=== PATIENT | male | born 1960 | race Caucasian/White ===

== ENCOUNTER 2018-09-02 15:37 | Emergency (ER) | payer MEDICARE ==
[~2018-09-02] VITALS: Ht 175.3 cm; Wt 84.1 kg
[2018-09-02 15:41] VITALS: TEMP 98.1
[2018-09-02 16:11] LABS: BASO # 0.1 (0.0-0.2); BASO % 0.6 % (0.0-2.0); EOS # 0.1 (0.0-0.7); EOS % 0.7 % (0-4.0); GRAN # 5.5 (1.4-6.5); GRAN % 51.1 % (42.2-75.2); LYMPH # 3.7 (1.2-3.4); LYMPH % 34.3 % (20.0-51.0); MEAN CELL VOLUME 95 fl (80.0-100.0); MEAN CORPUSCULAR HEMOGLOBIN 34 pg (27.0-31.0); MEAN CORPUSCULAR HGB CONC 36 g/dl (33.0-37.0); MEAN PLATELET VOLUME 9.9 fl (7.4-10.4); MONO # 1.4 (0.1-0.6); PLATELET COUNT 184 K/mm3 (130-400); RED BLOOD COUNT 4.75 M/mm3 (4.20-5.60); REDCELL DISTRIBUTION WIDTH-CV 12.8 % (11.5-14.5)
[2018-09-02 16:13] LABS: COLLECTION METHOD CLEAN CATCH
[2018-09-02 16:22] LABS: MUCOUS Present /lpf; PH 6 (5-8); SQUAMOUS EPITHELIAL None Seen /hpf; URINE APPEARANCE Clear; URINE BACTERIA None Seen /hpf; URINE BILIRUBIN Negative (NEGATIVE); URINE BLOOD Negative (NEGATIVE); URINE COLOR Yellow; URINE GLUCOSE 1+ (NEGATIVE); URINE KETONE Negative (NEGATIVE); URINE LEUKOCYTE ESTERASE Negative (NEGATIVE); URINE NITRATE Negative (NEGATIVE); URINE PROTEIN(semi-quant) Negative (NEGATIVE); URINE RBC 0-2 /hpf; URINE UROBILINOGEN >=4.0 mg/dL (NEGATIVE)
[2018-09-02 16:29] LABS: ALANINE AMINOTRANSFERASE 24 U/L (21-72); ALBUMIN 4.8 gm/dL (3.5-5.0); ALKALINE PHOSPHATASE 82 U/L (50-136); ANION GAP 13 mmol/L (7-16); AST,SGOT 51 U/L (15-37); BILIRUBIN,TOTAL 1.1 mg/dL (0.0-1.0); BLOOD UREA NITROGEN 18 mg/dL (9-20); CALCIUM 9.3 mg/dL (8.4-10.2); CARBON DIOXIDE 26 mmol/L (22-30); CHLORIDE 97 mmol/L (98-107); CREATININE, serum 1.12 (0.66-1.25); GLUCOSE 104 mg/dL (74-106); SODIUM 135 mmol/L (137-145); TOTAL PROTEIN 9.4 gm/dL (6.4-8.2)
[2018-09-02 16:30] LABS: TRICYCLIC ANTIDEPRESS URINE POSITIVE
[2018-09-02 16:31] LABS: ALCOHOL(ethanol),MEDICAL < 10 mg/dL
[2018-09-02] MEDS ORDERED: SEROQUEL 1100 MG/TAB PO (17:47)
[2018-09-02] MEDS ORDERED: ATARAX50 MG PO (17:48)
[2018-09-02] MEDS ORDERED: ZOLOFT 50MG50 MG PO (17:48)
[2018-09-02] MEDS ORDERED: GLUCOPHAGE500 MG/TAB PO (18:07)
[2018-09-03 03:03] VITALS: BP 106/74; PULSE 108
== END 2018-09-03 03:06 | disposition home or self-care (01) ==
LOC: COL.ER 15:37
PROVIDERS: Family Medicine
DX: F20.9 Schizophrenia, unspecified (principal); T43.625A Adverse effect of amphetamines, initial encounter; E11.9 Type 2 diabetes mellitus without complications; J44.9 Chronic obstructive pulmonary disease, unspecified; I10 Essential (primary) hypertension; F17.210 Nicotine dependence, cigarettes, uncomplicated; Z79.84 Long term (current) use of oral hypoglycemic drugs
CPT/HCPCS: J1630